=== PATIENT | male | born 1945 | race Caucasian/White ===

== ENCOUNTER 2016-09-26 12:47 | Outpatient (CLI) | payer MEDICARE, OTHER ==
[2016-09-26 13:35] LABS: Hemoglobin 17.6 g/dL (14.0-18.0); Mean Corpuscular HGB CONC 33.2 g/dL (32.0-36.0); Mean Corpuscular Hemoglobin 29.6 pg (27.0-31.0); Mean Corpuscular Volume 89.1 fl (80.0-94.0); Mean Platelet Volume 7.8 fL (7.4-10.4); Platelet Count 207 thou/uL (130-400); RBC Distribution Width 12.8 % (11.5-14.5); Red Blood Cell (RBC) Count 5.94 mill/uL (4.70-6.10); White Blood Cell (WBC) Count 7.9 thou/uL (4.8-10.8)
[2016-09-26 13:46] LABS: Hemoglobin A1c 5.5 % (4.0-6.0)
[2016-09-26 14:44] LABS: Thyroid Stimulating Hormone 2.9497 uIU/mL (0.35-4.94); Vitamin D, 25 Hydroxy 34.9 ng/mL (> 30.0)
[2016-09-26 16:54] LABS: ALT (SGPT) 34 U/L (0-55); AST (SGOT) 25 U/L (5-34); Albumin 4.3 g/dL (3.4-4.8); Alkaline Phosphatase 89 U/L (40-150); Anion Gap 17 mmol/L (10-20); BUN (Urea Nitrogen) 38 mg/dL (8.4-25.7); Bilirubin, Total 0.5 mg/dL (0.2-1.2); Calc. Creatinine Clearance 0 mL/min (70-130); Calcium 10.1 mg/dL (7.8-10.44); Carbon Dioxide 26 mmol/L (23-31); Chloride 100 mmol/L (98-107); Estimated GFR-MDRD 49; Globulin 2.5 g/dL (2.4-3.5); Glucose 98 mg/dL (80-115); Protein, Total 6.8 g/dL (5.8-8.1); Sodium 139 mmol/L (136-145)
== END 2016-09-26 12:48 | disposition home or self-care (01) ==
LOC: MADLAB 12:47
PROVIDERS: ATTEND Internal Medicine Geriatric Medicine
DX: I48.91 Unspecified atrial fibrillation (principal); K21.9 Gastro-esophageal reflux disease without esophagitis; E11.9 Type 2 diabetes mellitus without complications; N52.9 Male erectile dysfunction, unspecified; I10 Essential (primary) hypertension; G47.00 Insomnia, unspecified
CPT/HCPCS: 36415; 80053; 82306; 83036; 84443; 85027

== ENCOUNTER 2016-12-20 10:25 | Outpatient (CLI) | payer MEDICARE ==
[2016-12-20 10:45] LABS: #Basophils 0.1 thou/uL (0.0-0.2); #Eosinphils 0.3 thou/uL (0.0-0.7); #Lymphocytes 1.8 thou/uL (1.20-3.40); #Monocytes 0.7 thou/uL (0.11-0.59); #Neutrophils 2.3 thou/uL (1.40-6.50); %Basophils 2.2 % (0.0-1.0); %Eosinophils 6.4 % (0.0-10.0); %Lymphocytes 35.1 % (21.0-51.0); %Monocytes 12.6 % (0.0-10.0); %Neutrophils 43.6 % (42.0-75.0); Hemoglobin 12.4 g/dL (14.0-18.0); Mean Corpuscular HGB CONC 33.2 g/dL (32.0-36.0); Mean Corpuscular Hemoglobin 29.8 pg (27.0-31.0); Mean Corpuscular Volume 89.7 fl (80.0-94.0); Platelet Count 213 thou/uL (130-400); RBC Distribution Width 12.5 % (11.5-14.5); Red Blood Cell (RBC) Count 4.15 mill/uL (4.70-6.10); White Blood Cell (WBC) Count 5.2 thou/uL (4.8-10.8)
[2016-12-20 10:55] LABS: Hemoglobin A1c 5.1 % (4.0-6.0)
[2016-12-20 11:00] LABS: ALT (SGPT) 24 U/L (0-55); AST (SGOT) 23 U/L (5-34); Albumin 4.1 g/dL (3.4-4.8); Alkaline Phosphatase 83 U/L (40-150); Anion Gap 14 mmol/L (10-20); BUN (Urea Nitrogen) 31 mg/dL (8.4-25.7); Bilirubin, Total 0.3 mg/dL (0.2-1.2); Calc. Creatinine Clearance 0 mL/min (70-130); Calcium 9.5 mg/dL (7.8-10.44); Carbon Dioxide 26 mmol/L (23-31); Chloride 104 mmol/L (98-107); Estimated GFR-MDRD 45; Globulin 2.3 g/dL (2.4-3.5); Glucose 121 mg/dL (80-115); Potassium 4.2 mmol/L (3.5-5.1); Protein, Total 6.4 g/dL (5.8-8.1); Sodium 140 mmol/L (136-145)
[2016-12-20 12:11] LABS: Thyroid Stimulating Hormone 3.9391 uIU/mL (0.35-4.94); Vitamin D, 25 Hydroxy 34.4 ng/mL (> 30.0)
[2016-12-20 17:03] LABS: Creatinine, Urine 32.46 mg/dL (63-166); Microalbumin Urine Less than 1.0 mg/dL (0.5-50.0); Microalbumin/Creat Ratio 30.8 mg/g (Less than 30)
== END 2016-12-20 10:26 | disposition home or self-care (01) ==
LOC: MADLAB 10:25
PROVIDERS: ATTEND Internal Medicine Geriatric Medicine
DX: E11.9 Type 2 diabetes mellitus without complications (principal); K21.9 Gastro-esophageal reflux disease without esophagitis; G47.00 Insomnia, unspecified; I10 Essential (primary) hypertension; N52.9 Male erectile dysfunction, unspecified; I48.91 Unspecified atrial fibrillation
CPT/HCPCS: 36415; 80053; 82043; 82306; 83036; 84443; 85025

== ENCOUNTER 2017-04-02 10:58 | Outpatient (CLI) | payer MEDICARE ==
[2017-04-02 12:16] LABS: ALT (SGPT) 29 U/L (8-55); AST (SGOT) 24 U/L (5-34); Albumin 4.1 g/dL (3.4-4.8); Alkaline Phosphatase 86 U/L (40-150); Anion Gap 16 mmol/L (10-20); BUN (Urea Nitrogen) 32 mg/dL (8.4-25.7); Bilirubin, Total 0.4 mg/dL (0.2-1.2); Calc. Creatinine Clearance 0 mL/min (70-130); Calcium 9.2 mg/dL (7.8-10.44); Carbon Dioxide 27 mmol/L (23-31); Chloride 102 mmol/L (98-107); Estimated GFR-MDRD 50; Globulin 3.8 g/dL (2.4-3.5); Glucose 109 mg/dL (80-115); Potassium 4.1 mmol/L (3.5-5.1); Protein, Total 7.9 g/dL (5.8-8.1); Sodium 141 mmol/L (136-145)
[2017-04-02 13:44] LABS: #Basophils 0.1 thou/uL (0.0-0.2); #Eosinphils 0.4 thou/uL (0.0-0.7); #Lymphocytes 2.1 thou/uL (1.20-3.40); #Neutrophils 4.7 thou/uL (1.40-6.50); %Basophils 1.3 % (0.0-1.0); %Eosinophils 4.6 % (0.0-10.0); %Lymphocytes 25.3 % (21.0-51.0); %Neutrophils 56.8 % (42.0-75.0); Anisocytosis SLIGHT = 6-15 cells (100X) (0-5/hpf); Hemoglobin 12.6 g/dL (14.0-18.0); Hypochromia SLIGHT = 6-15 cells (100X) (0-5/hpf); MDiff Complete? YES; Mean Corpuscular HGB CONC 30.4 g/dL (32.0-36.0); Mean Corpuscular Hemoglobin 23.2 pg (27.0-31.0); Mean Corpuscular Volume 76.3 fl (80.0-94.0); Mean Platelet Volume 7.5 fL (7.4-10.4); Microcytosis SLIGHT = 6-15 cells (100X) (0-5/hpf); PLT Morphology Comment Appears Adequate; Platelet Count 211 thou/uL (130-400); RBC Distribution Width 16.5 % (11.5-14.5); Red Blood Cell (RBC) Count 5.41 mill/uL (4.70-6.10); White Blood Cell (WBC) Count 8.2 thou/uL (4.8-10.8)
== END 2017-04-02 10:59 | disposition home or self-care (01) ==
LOC: MADLAB 10:58
DX: R10.30 Lower abdominal pain, unspecified (principal); R71.8 Other abnormality of red blood cells; E11.9 Type 2 diabetes mellitus without complications; I10 Essential (primary) hypertension
CPT/HCPCS: 36415; 80053; 83516; 84443; 85025; 87338

== ENCOUNTER 2017-05-01 22:17 | Emergency (ER) | payer MEDICARE ==
--- NOTE | 2017-05-01 23:17 | RAD ---
TWO VIEW CHEST 04/29/17 COMPARISON: 12/06/14 INDICATION: Short of breath. FINDINGS: There is no consolidation, effusion, or discrete pneumothorax. The cardiac silhouette is stable. IMPRESSION: Stable chest without evidence of focal consolidation. POS: [facility]
[2017-05-01 23:22] LABS: #Basophils 0.1 thou/uL (0.0-0.2); #Eosinphils 0.4 thou/uL (0.0-0.7); #Monocytes 1.1 thou/uL (0.11-0.59); #Neutrophils 6.4 thou/uL (1.40-6.50); %Basophils 0.9 % (0.0-1.0); %Eosinophils 4.2 % (0.0-10.0); %Lymphocytes 19.9 % (21.0-51.0); %Monocytes 11.3 % (0.0-10.0); %Neutrophils 63.7 % (42.0-75.0); Hemoglobin 11.3 g/dL (14.0-18.0); MDiff Complete? YES; Mean Corpuscular HGB CONC 31.3 g/dL (32.0-36.0); Mean Corpuscular Volume 76.8 fl (80.0-94.0); Mean Platelet Volume 7.4 fL (7.4-10.4); Microcytosis SLIGHT = 6-15 cells (100X) (0-5/hpf); Platelet Count 221 thou/uL (130-400); Polychromasia SLIGHT = 2-3 cells (100X) (0-2/hpf); RBC Distribution Width 17.5 % (11.5-14.5); White Blood Cell (WBC) Count 10.1 thou/uL (4.8-10.8)
[2017-05-01 23:27] LABS: ALT (SGPT) 33 U/L (8-55); AST (SGOT) 27 U/L (5-34); Albumin 3.8 g/dL (3.4-4.8); Alkaline Phosphatase 73 U/L (40-150); Anion Gap 16 mmol/L (10-20); BUN (Urea Nitrogen) 46 mg/dL (8.4-25.7); Bilirubin, Total 0.3 mg/dL (0.2-1.2); Calc. Creatinine Clearance 0 mL/min (70-130); Calcium 8.8 mg/dL (7.8-10.44); Carbon Dioxide 26 mmol/L (23-31); Chloride 100 mmol/L (98-107); Estimated GFR-MDRD 36; Globulin 2.7 g/dL (2.4-3.5); Glucose 82 mg/dL (80-115); Potassium 4.4 mmol/L (3.5-5.1); Protein, Total 6.5 g/dL (5.8-8.1); Sodium 138 mmol/L (136-145)
[2017-05-01 23:28] LABS: Digoxin 0.26 ng/mL (0.8-2.0)
[2017-05-01] MEDS ORDERED: Furosemide 20 MG/2 ML VIAL ONE (23:30)
[2017-05-01 23:33] LABS: CKMB 4.1 ng/mL (0-6.6); Troponin I 0.019 ng/mL (< 0.028)
== END 2017-05-02 00:13 | disposition home or self-care (01) ==
LOC: MADERS 22:17
DX: D50.9 Iron deficiency anemia, unspecified (principal); I11.0 Hypertensive heart disease with heart failure; I50.9 Heart failure, unspecified; N28.9 Disorder of kidney and ureter, unspecified; I48.91 Unspecified atrial fibrillation; E11.9 Type 2 diabetes mellitus without complications; Z79.899 Other long term (current) drug therapy; Z79.4 Long term (current) use of insulin
CPT/HCPCS: 71020; 80053; 80162; 82553; 83880; 84484; 85025; 85379; 93005; 96374; J1940

== ENCOUNTER 2018-01-06 10:02 | Outpatient (CLI) | payer MEDICARE ==
--- NOTE | 2018-01-06 11:41 | ULT ---
RENAL ULTRASOUND: Comparison: None. History: Calculus of the kidney. Dull ache for a few weeks on the right side. Technique: Multiplanar grayscale and color doppler images were obtained in a renal ultrasound. FINDINGS: The kidneys are normal in echogenicity without hydronephrosis or shadowing calculi and measure 7.9 an d 10.3 cm in length on the right and left, respectively. Limited visualization of the urinary bladder is unremarkable. IMPRESSION: Unremarkable renal ultrasound. POS: [facility]
== END 2018-01-06 10:03 | disposition home or self-care (01) ==
LOC: MADULT 10:02
PROVIDERS: ATTEND Internal Medicine Geriatric Medicine
DX: N20.0 Calculus of kidney (principal)
CPT/HCPCS: 76770

== ENCOUNTER 2018-01-15 10:30 | Outpatient (CLI) | payer MEDICARE ==
[~2018-01-15 10:30] MED LIST: Iopamidol 370 76% 100 ML VIAL ONE
--- NOTE | 2018-01-15 12:18 | CT ---
CT ABDOMEN AND PELVIS WITH IV AND ORAL CONTRAST: HISTORY: Weight gain. Abdominal pain. COMPARISON: 01/19/2016 FINDINGS: Calcified granulomata within the solid organs are consistent with healed granulomatous disease. A ti ny, nonspecific, subpleural nodule at the right anterior lung base is stable. The liver, spleen, kid neys, adrenal glands, and pancreas otherwise have a normal CT appearance. There is calcification in the arterial structures. No evidence of bowel obstruction. The urinary bladder is decompressed. Sc attered diverticula arise from the colon without adjacent inflammation. IMPRESSION: 1. Atherosclerosis. Incidental type findings are stable. 2. No significant abnormalities are demonstrated. POS: [facility]
== END 2018-01-15 10:31 | disposition home or self-care (01) ==
LOC: MADCT 10:30
PROVIDERS: ATTEND Internal Medicine Gastroenterology
DX: R63.5 Abnormal weight gain (principal); I70.90 Unspecified atherosclerosis
CPT/HCPCS: 36415; 74177; 82565

== ENCOUNTER 2018-03-31 11:23 | Emergency (ER) | payer MEDICARE ==
[2018-03-31] MEDS ORDERED: HYDROcodone/Acetaminophen 10/325 mg Tablet ONE (12:07)
[2018-03-31 12:09] LABS: #Basophils 0.1 thou/uL (0.0-0.2); #Eosinphils 0.3 thou/uL (0.0-0.7); #Lymphocytes 1.7 thou/uL (1.20-3.40); #Monocytes 0.7 thou/uL (0.11-0.59); #Neutrophils 3.1 thou/uL (1.40-6.50); %Basophils 2.4 % (0.0-1.0); %Eosinophils 4.7 % (0.0-10.0); %Lymphocytes 29.2 % (21.0-51.0); %Neutrophils 51.8 % (42.0-75.0); Mean Corpuscular HGB CONC 32.6 g/dL (32.0-36.0); Mean Corpuscular Hemoglobin 27.5 pg (27.0-31.0); Mean Corpuscular Volume 84.4 fL (78.0-98.0); Mean Platelet Volume 6.4 fL (7.4-10.4); Platelet Count 173 thou/uL (130-400); RBC Distribution Width 12.1 % (11.5-14.5); Red Blood Cell (RBC) Count 5.45 mill/uL (4.70-6.10)
[2018-03-31 12:19] LABS: Anion Gap 18 mmol/L (10-20); BUN (Urea Nitrogen) 42 mg/dL (8.4-25.7); Calc. Creatinine Clearance 0 mL/min (70-130); Calcium 9.2 mg/dL (7.8-10.44); Carbon Dioxide 23 mmol/L (23-31); Chloride 102 mmol/L (98-107); Estimated GFR-MDRD 34; Glucose 136 mg/dL (80-115); Potassium 5.1 mmol/L (3.5-5.1); Sodium 138 mmol/L (136-145)
[2018-03-31] MEDS ORDERED: methylPREDNISolone Sod Succ/PF 125 MG/2 ML VIAL ONE (12:21)
--- NOTE | 2018-03-31 13:13 | CT ---
CT LUMBAR SPINE NONCONTRAST: HISTORY: Low back pain. Burning. FINDINGS: Images, including the abdomen, show calcified granulomata, consistent with healed granulomatous disea se. There is calcification throughout the arterial structures. Vertebral body heights are maintained. There is disk space narrowing and gas disk phenomenon at each level. Schmorl's nodes through the endplates throughout the lumbar spine. Discogenic endplate joyner ges are most pronounced at the L1-L2 and L2-L3 levels. There are posterior disk bulge and circumferential degenerative changes throughout the lumbar spine. Central canal stenosis is most severe at the L2-L3 level. Foraminal stenoses are most severe on the right at the lumbosacral junction and on the left at the L2-L3 and L5-S1 levels. IMPRESSION: 1. Degenerative changes throughout the lumbar spine, including severe central canal and foraminal st enoses. 2. No evidence of acute osseous abnormality. 3. Atherosclerosis. POS: [facility]
== END 2018-03-31 12:37 | disposition home or self-care (01) ==
LOC: MADERS 11:23
DX: E11.42 Type 2 diabetes mellitus with diabetic polyneuropathy (principal); M54.5 Low back pain; I48.91 Unspecified atrial fibrillation; I11.0 Hypertensive heart disease with heart failure; I50.9 Heart failure, unspecified; Z79.899 Other long term (current) drug therapy; Z79.4 Long term (current) use of insulin
CPT/HCPCS: 72131; 80048; 85025; 96374; J2930

== ENCOUNTER 2018-07-04 11:17 | Outpatient (CLI) | payer MEDICARE ==
[2018-07-06 17:55] LABS: Hemoglobin 11.8 g/dL (14.0-18.0); Mean Corpuscular Hemoglobin 23.8 pg (27.0-31.0); Mean Corpuscular Volume 77.8 fL (78.0-98.0); Red Blood Cell (RBC) Count 4.95 mill/uL (4.70-6.10); White Blood Cell (WBC) Count 5.9 thou/uL (4.8-10.8)
[2018-07-06 17:56] LABS: #Basophils 0.1 thou/uL (0.0-0.2); #Eosinphils 0.4 thou/uL (0.0-0.7); #Lymphocytes 1.6 thou/uL (1.20-3.40); #Monocytes 0.6 thou/uL (0.11-0.59); #Neutrophils 3.2 thou/uL (1.40-6.50); %Basophils 1.7 % (0.0-1.0); %Eosinophils 6.3 % (0.0-10.0); %Lymphocytes 26.7 % (21.0-51.0); %Monocytes 10.8 % (0.0-10.0); %Neutrophils 54.5 % (42.0-75.0); Manual Diff?? NO; Mean Corpuscular HGB CONC 30.6 g/dL (32.0-36.0); Mean Platelet Volume 7.4 fL (7.4-10.4); Platelet Count 212 thou/uL (130-400); RBC Distribution Width 14.1 % (11.5-14.5)
[2018-07-06 17:58] LABS: Anion Gap 13 mmol/L (10-20); BUN (Urea Nitrogen) 44 mg/dL (8.4-25.7); Calc. Creatinine Clearance 0 mL/min (70-130); Carbon Dioxide 27 mmol/L (23-31); Chloride 104 mmol/L (98-107); Estimated GFR-MDRD 38; Glucose 169 mg/dL (80-115); Potassium 4.2 mmol/L (3.5-5.1); Sodium 140 mmol/L (136-145)
[2018-07-06 17:59] LABS: ALT (SGPT) 28 U/L (8-55); AST (SGOT) 23 U/L (5-34); Albumin 4.3 g/dL (3.4-4.8); Alkaline Phosphatase 121 U/L (40-150); Bilirubin, Total 0.4 mg/dL (0.2-1.2); Calcium 9.3 mg/dL (7.8-10.44); Cardiac Risk 5.2 (Less than 4.5); Cholesterol 182 mg/dL (< 200 Desired); Globulin 2.5 g/dL (2.4-3.5); HDL Cholesterol 35 mg/dL (>60 Neg Risk); LDL Cholesterol, Calculated 98 mg/dL; Protein, Total 6.8 g/dL (5.8-8.1); Triglycerides 243 mg/dL (Less than 150)
[2018-07-06 18:28] LABS: Hemoglobin A1c 6.8 % (4.0-6.0)
== END 2018-07-04 11:18 | disposition home or self-care (01) ==
LOC: MADLAB 11:17
DX: E11.9 Type 2 diabetes mellitus without complications (principal); E78.5 Hyperlipidemia, unspecified; I10 Essential (primary) hypertension
CPT/HCPCS: 36415; 80053; 80061; 83036; 85025

== ENCOUNTER 2018-10-17 21:02 | Observation (INO) | payer MEDICARE ==
[~2018-10-17 21:02] MED LIST changes: -Iopamidol 370 76% 100 ML VIAL ONE; +Sodium Chloride 0.9% 1,000 ML BAG ONE
[2018-10-17] MEDS ORDERED: Morphine 10 MG/ML VIAL ONE (21:47)
[2018-10-17 22:02] LABS: #Basophils 0.1 thou/uL (0.0-0.2); #Eosinphils 0.6 thou/uL (0.0-0.7); #Lymphocytes 2.1 thou/uL (1.20-3.40); #Neutrophils 3.6 thou/uL (1.40-6.50); %Basophils 1.5 % (0.0-1.0); %Eosinophils 8.2 % (0.0-10.0); %Lymphocytes 27.8 % (21.0-51.0); %Monocytes 13.7 % (0.0-10.0); %Neutrophils 48.8 % (42.0-75.0); Hemoglobin 12.4 g/dL (14.0-18.0); Mean Corpuscular Hemoglobin 23.7 pg (27.0-31.0); Mean Corpuscular Volume 78.8 fL (78.0-98.0); Mean Platelet Volume 7.7 fL (7.4-10.4); Platelet Count 230 thou/uL (130-400); Red Blood Cell (RBC) Count 5.22 mill/uL (4.70-6.10); White Blood Cell (WBC) Count 7.4 thou/uL (4.8-10.8)
[2018-10-17 22:11] LABS: Microcytosis SLIGHT = 6-15 cells (100X) (0-5/hpf); Poikilocytosis SLIGHT = 6-15 cells (100X) (0-5/hpf)
[2018-10-17 22:12] LABS: Platelet Morphology Comment Appears Adequate
--- NOTE | 2018-10-17 22:12 | RAD ---
CHEST ONE VIEW: 10/17/18 HISTORY: Chest pain. COMPARISON: 08/06/17. FINDINGS: The cardiac silhouette is magnified by projection. Pulmonary vasculature is slightly engorged. Medias tinum is midline. No lobar consolidation or evidence of pneumothorax. IMPRESSION: Borderline pulmonary vascular congestion. POS: [facility]
[2018-10-17 22:17] LABS: ALT (SGPT) 24 U/L (8-55); AST (SGOT) 20 U/L (5-34); Albumin 4.2 g/dL (3.4-4.8); Alkaline Phosphatase 110 U/L (40-150); Anion Gap 18 mmol/L (10-20); BUN (Urea Nitrogen) 74 mg/dL (8.4-25.7); Bilirubin, Total 0.5 mg/dL (0.2-1.2); Calc. Creatinine Clearance 0 mL/min (70-130); Calcium 9.5 mg/dL (7.8-10.44); Carbon Dioxide 26 mmol/L (23-31); Chloride 100 mmol/L (98-107); Estimated GFR-MDRD 28; Globulin 2.4 g/dL (2.4-3.5); Glucose 150 mg/dL (83-110); Lipase 25 U/L (8-78); Potassium 5.7 mmol/L (3.5-5.1); Protein, Total 6.6 g/dL (5.8-8.1); Sodium 138 mmol/L (136-145)
[2018-10-17 22:26] LABS: Bilirubin Negative (Negative); Blood, Urine Negative (Negative); Clarity Clear (Clear); Glucose, Urine (Dipstick) Negative (Negative); Leukocyte Negative (Negative); Nitrite Negative (Negative); Protein, Urine (Dipstick) Negative (Neg-Trace); Urobilinogen 0.2 mg/dL (0.2-1.0)
--- NOTE | 2018-10-17 22:38 | CT ---
CT ABDOMEN AND PELVIS NONCONTRAST: 10/17/18 HISTORY: Flank pain. COMPARISON: 01/15/18. FINDINGS: Each renal collecting system, ureter, and urinary bladder are decompressed without stone apparent. Lack of contrast limits evaluation for other abnormalities. Tiny subpleural nodule at the right anter ior lung base is unchanged. There is prominent calcification throughout the arterial structures. Dive rticula arise from the colon without adjacent inflammation. Prominent degenerative changes of the lum bar spine. IMPRESSION: No CT evidence of urinary tract obstruction or calcification. Atherosclerosis. Chronic type findings are stable. POS: [facility]
[2018-10-17] MEDS ORDERED: Insulin Regular 300 UNITS/3 ML VIAL ONE (23:04)
[2018-10-17] MEDS ORDERED: Dextrose 50% Abboject 50 ML SYRINGE ONE (23:04)
[2018-10-17] MEDS ORDERED: Albuterol Sulfate 2.5 mg/3 ml Neb ONE (23:04)
[2018-10-18 00:59] VITALS: BMI 32.2
[2018-10-18] MEDS ORDERED: Dextrose 5% in Water 1,000 ML IV PRN (01:39)
[2018-10-18] MEDS ORDERED: Dextrose 50% Abboject 50 ML SYRINGE IVP PRN (01:39)
[2018-10-18] MEDS ORDERED: Zolpidem Tartrate 5 MG TAB PO PRN (01:40)
[2018-10-18] MEDS ORDERED: DICLOFENAC 1% TOP PRN (01:42)
[2018-10-18] MEDS ORDERED: Ondansetron PF 4 MG/2 ML Vial IVP PRN (01:44)
[2018-10-18] MEDS: Sodium Chloride 0.9% 1,000 ML IV SCH (02:48)
[2018-10-18] MEDS: HYDROcodone/Acetaminophen 10/325 mg Tablet PO PRN (03:47)
[2018-10-18] MEDS: Furosemide 80 MG TAB PO SCH (06:03)
[2018-10-18] MEDS: Nebivolol HCl 5 MG TAB PO SCH (08:29)
[2018-10-18] MEDS: Digoxin 0.125 MG TAB PO SCH (08:29)
[2018-10-18] MEDS: Gabapentin 100 MG CAP PO SCH (08:29)
[2018-10-18] MEDS: HumaLOG 300 UNITS/3 ML VIAL SC PRN (08:30)
[2018-10-18 09:11] VITALS: BP 140/75; TEMP 97.3
[2018-10-18 11:13] LABS: Hemoglobin 13.2 g/dL (14.0-18.0); Mean Corpuscular HGB CONC 30.4 g/dL (32.0-36.0); Mean Corpuscular Volume 79.2 fL (78.0-98.0); Mean Platelet Volume 7.1 fL (7.4-10.4); Platelet Count 260 thou/uL (130-400); RBC Distribution Width 15.9 % (11.5-14.5); White Blood Cell (WBC) Count 8.4 thou/uL (4.8-10.8)
[2018-10-18 11:40] LABS: #Basophils 0.2 thou/uL (0.0-0.2); #Eosinphils 0.5 thou/uL (0.0-0.7); #Lymphocytes 1.8 thou/uL (1.20-3.40); %Basophils 2.6 % (0.0-1.0); %Eosinophils 5.4 % (0.0-10.0); %Lymphocytes 21.3 % (21.0-51.0); %Monocytes 11.5 % (0.0-10.0); %Neutrophils 59.2 % (42.0-75.0); MDiff Complete? YES; Microcytosis SLIGHT = 6-15 cells (100X) (0-5/hpf); Platelet Morphology Comment Appears Adequate; Polychromasia SLIGHT = 2-3 cells (100X) (0-2/hpf); RBC Morphology 0
[2018-10-18 12:00] LABS: Anion Gap 19 mmol/L (10-20); BUN (Urea Nitrogen) 69 mg/dL (8.4-25.7); Calc. Creatinine Clearance 53 mL/min (70-130); Calcium 9.3 mg/dL (7.8-10.44); Carbon Dioxide 21 mmol/L (23-31); Chloride 101 mmol/L (98-107); Estimated GFR-MDRD 38; Glucose 187 mg/dL (83-110); Potassium 4.6 mmol/L (3.5-5.1); Sodium 136 mmol/L (136-145)
--- NOTE | 2018-10-18 15:16 | SS ---
DATE OF ADMISSION: 10/17/2018 DATE OF DISCHARGE: 10/18/2018 SHORT-STAY/OBSERVATION STAY: REASON FOR ADMISSION: Acute hyperkalemia with acute on chronic renal insufficiency. ADMITTING DIAGNOSES: 1. Acute hyperkalemia secondary to erroneous intake of potassium supplement. 2. Acute on chronic renal failure, improved. 3. Congestive heart failure, compensated. 4. Chronic atrial fibrillation, rate controlled. 5. Hypertension, stable. 6. Long-term use of anticoagulant (Pradaxa). 7. Diabetes type 2, insulin requiring. 8. Chronic insomnia. 9. Neuropathic pain. HISTORY OF PRESENT ILLNESS AND HOSPITAL COURSE: Mr. Weathers is a 73-year-old male with significant history of chronic atrial fibrillation; CHF; hypertension; diabetes type 2, insulin requiring; neuropathic pain; chronic insomnia; and chronic arthritic pain. The patient presented to [facility] on the night of 10/17/2018 secondary to evaluation of abdominal pain. Pain is generalized, dull in nature, and mild in severity. No other associated signs and symptoms reported. Denies nausea, vomiting, diarrhea, or rectal bleeding. On further examination in the ER, the patient was noted to have hyperkalemia at 5.7 with creatinine of 2.32. The patient admits that he has been taking Lasix in a while secondary to congestive heart failure. He admits that when he feels kind of short of breath, he increases his Lasix to twice a day and thus increases his potassium supplement with it. He normally takes KCl 20 mEq with one dose of Lasix 80 mg p.o. The patient admits that this time he has been taking at least three to four potassium supplements as he is afraid that he might be losing a lot of potassium since he has been getting more diuretics. Further exam showed borderline pulmonary vascular congestion by chest x-ray, unremarkable abdominal/ pelvic CT except for atherosclerosis and chronic type findings of tiny subdural nodule at the right anterior lung base, which was unchanged and stable in appearance, and prominent degenerative changes of the lumbar spine. The patient received morphine at the ER that relieved his abdominal pain. No recurrence of abdominal pain overnight. He was also treated with IV fluids over night with caution. His potassium supplement was withheld. The patient received a total of 1 unit of NS in the floor overnight. Repeat labs this morning prior to discharge showed sodium 136, potassium 4.6, BUN 69, creatinine 1.78, glucose of 187, and calcium 9.3. Other labs include troponin 0.12, BNP of 135.1, lipase 25, albumin 4.2, liver function tests within normal limits. Negative urinalysis. WBC 7.4 to 8.4, hemoglobin 12.4 to 13.2, hematocrit 41.2 and 43.5, and platelets 230 to 260. When evaluated this morning, the patient reports that he is feeling a whole lot better after IVF was received.Patient was very adamant to go home. His baseline chemistry on prior visit has a creatinine of 1.7, thus he was told that he is at his baseline at this point. He was highly recommended not to change his KCl supplement except for what is needed or prescribed. He can resume his potassium supplement 20 mEq b.i.d. with Lasix 80 mg p.o. b.i.d. as per home medication dose. He is also recommended to follow up in a week's time with his PCP. The patient voiced understanding and he will arrange his appointment. He is recommended to have repeat electrolytes and kidney function test prior to outpatient followup. He will discuss this further with his PCP. PAST MEDICAL AND SURGICAL HISTORY: Includes cardiac history, congestive heart failure, arrhythmia, atrial fibrillation, status post stent placement; history of diabetes type 2, insulin requiring; history of diverticulitis on 03/31/2018; status post appendectomy; tonsillectomy; stent placement x2; lower leg fractures on 03/31/2018. SOCIAL HISTORY: The patient is . Denies alcohol use or drug use. No smoking history. He was a former drug user, but not any longer except for his current pain medications. OTHER LABS/TEST: EKG; atrial fibrillation, 58 beats per minute, normal axis and intervals, normal EKG. PHYSICAL EXAMINATION: VITAL SIGNS: Blood pressure 140/75, temperature 97.3, pulse 85, respiration 20 , and O2 saturations 99%. Weight 218 pounds and 5 ounces. Height 5 feet and 10 inches. GENERAL: The patient is awake, alert, and oriented x3. Not in distress. Ambulatory without use of assistive device. HEENT: Normocephalic and atraumatic. PERRL. Intact EOM. Anicteric sclerae. Tongue in midline. No tremors. Oral mucosa is moist. NECK: Supple. No LAD. No thyromegaly. Flat JVD. CHEST: Normal excursion. Clear to auscultation bilaterally. CARDIAC: Rate controlled. Normal S1 and S2. ABDOMEN: Obese, soft. Normoactive bowel sounds. Nondistended, nontender. Negative CVA tenderness bilaterally. EXTREMITIES: No edema. No cyanosis. PSYCH: Appears calm with appropriate demeanor and affect. Cooperative. CODE STATUS: The patient is full code. Job ID: [id number] [facility]
== END 2018-10-18 12:36 | disposition home or self-care (01) ==
LOC: MADERS 21:02 → MADMS 23:56
PROVIDERS: ADMIT Family Medicine; ATTEND Family Medicine
DX: E87.5 Hyperkalemia (principal); I13.0 Hypertensive heart and chronic kidney disease with heart failure and stage 1 through stage 4 chronic kidney disease, or unspecified chronic kidney disease; E11.22 Type 2 diabetes mellitus with diabetic chronic kidney disease; N18.9 Chronic kidney disease, unspecified; I50.9 Heart failure, unspecified; N17.9 Acute kidney failure, unspecified; I48.2 Chronic atrial fibrillation; G47.00 Insomnia, unspecified; E11.40 Type 2 diabetes mellitus with diabetic neuropathy, unspecified; Z95.5 Presence of coronary angioplasty implant and graft; Z90.49 Acquired absence of other specified parts of digestive tract; Z90.89 Acquired absence of other organs; Z79.01 Long term (current) use of anticoagulants; Z79.4 Long term (current) use of insulin; Z79.899 Other long term (current) drug therapy; Z98.890 Other specified postprocedural states
CPT/HCPCS: 36416; 71045; 74176; 80048; 80053; 81003; 83605; 83690; 83880; 84484; 85025; 93005; 96361; 96372; 96374; 96375; G0378; J1815; J2270; J7050; J7611

== ENCOUNTER 2019-03-30 15:13 | Emergency (ER) | payer MEDICARE ==
[~2019-03-30 15:13] MED LIST changes: +Iopamidol 370 76% 100 ML VIAL ONE; -Sodium Chloride 0.9% 1,000 ML BAG ONE; +Sodium Chloride 0.9% 100 ML BAG ONE
[2019-03-30 16:01] LABS: #Basophils 0.2 thou/uL (0.0-0.2); #Eosinphils 0.2 thou/uL (0.0-0.7); #Lymphocytes 1.7 thou/uL (1.20-3.40); #Neutrophils 5.1 thou/uL (1.40-6.50); %Basophils 1.9 % (0.0-1.0); %Eosinophils 2.3 % (0.0-10.0); %Lymphocytes 20.8 % (21.0-51.0); Mean Corpuscular HGB CONC 31.4 g/dL (32.0-36.0); Mean Corpuscular Hemoglobin 25.8 pg (27.0-31.0); Platelet Count 192 thou/uL (130-400); RBC Distribution Width 14.5 % (11.5-14.5); Red Blood Cell (RBC) Count 6.21 mill/uL (4.70-6.10)
[2019-03-30 16:10] LABS: INR-International Normal Ratio 1.2; Prothrombin Time 15.6 SEC (12.0-14.7)
[2019-03-30 16:22] LABS: ALT (SGPT) 31 U/L (8-55); AST (SGOT) 25 U/L (5-34); Albumin 4.6 g/dL (3.4-4.8); Alkaline Phosphatase 99 U/L (40-150); Anion Gap 19 mmol/L (10-20); BUN (Urea Nitrogen) 41 mg/dL (8.4-25.7); Bilirubin, Total 0.3 mg/dL (0.2-1.2); Calc. Creatinine Clearance 0 mL/min (70-130); Calcium 9.8 mg/dL (7.8-10.44); Carbon Dioxide 24 mmol/L (23-31); Chloride 100 mmol/L (98-107); Estimated GFR-MDRD 45; Globulin 2.9 g/dL (2.4-3.5); Glucose 86 mg/dL (83-110); Potassium 3.6 mmol/L (3.5-5.1); Protein, Total 7.5 g/dL (5.8-8.1); Sodium 139 mmol/L (136-145)
--- NOTE | 2019-03-30 16:38 | RAD ---
SINGLE VIEW OF THE CHEST: Comparison: 03-19-19 History: Dyspnea. FINDINGS: Single view of the chest shows cardiomediastinal silhouette which is upper limits of normal in size. There is no evidence of consolidation, mass, or pleural effusions. Degenerative changes are seen in t he spine. The patient has a left shoulder prosthesis. IMPRESSION: No evidence of acute cardiopulmonary disease. POS: [facility]
--- NOTE | 2019-03-30 19:59 | CT ---
CT PULMONARY ANGIOGRAM WITH IV CONTRAST AND 3D POST PROCESSING: HISTORY: Dyspnea. FINDINGS: There is good contrast opacification of the pulmonary arterial vasculature, without filling defects t o suggest pulmonary embolism. The thoracic aorta is well opacified without aneurysm or dissection. An aberrant right subclavian artery is present. No pleural or pericardial effusions are seen. No pn eumothoraces, focal areas of consolidation, or lung masses are identified. There are degenerative ch anges in the spine. A small hiatal hernia is present. There are calcified granulomas in the spleen. A left humeral head prosthesis is present. There is bilateral gynecomastia. IMPRESSION: No CT evidence of pulmonary embolism. POS: [facility]
== END 2019-03-30 19:35 | disposition home or self-care (01) ==
LOC: MADERS 15:13
DX: E11.65 Type 2 diabetes mellitus with hyperglycemia (principal); I10 Essential (primary) hypertension; N19 Unspecified kidney failure; I48.91 Unspecified atrial fibrillation; Z79.899 Other long term (current) drug therapy; Z79.4 Long term (current) use of insulin
CPT/HCPCS: 36416; 71045; 71275; 80053; 83880; 84484; 85025; 85610; 93005; J3490; Q9967

== ENCOUNTER 2019-04-23 12:20 | Outpatient (CLI) | payer MEDICARE ==
--- NOTE | 2019-04-23 14:17 | RAD ---
LEFT KNEE 2 VIEWS: Date: 04/23/19 HISTORY: Follow-up of total knee replacement. COMPARISON: 04/07/19 study. FINDINGS: Total knee prosthesis is in good position. No signs of loosening. There does appear to be some slight suprapatellar fullness suggesting presence of some joint effusion. IMPRESSION: Total knee prosthesis in good position. Suggestion of some joint effusion. POS: [facility]
== END 2019-04-23 12:21 | disposition home or self-care (01) ==
LOC: MADRAD 12:20
PROVIDERS: ATTEND Orthopaedic Surgery
DX: Z47.1 Aftercare following joint replacement surgery (principal); Z96.653 Presence of artificial knee joint, bilateral

== ENCOUNTER 2019-06-01 23:12 | Emergency (ER) | payer MEDICARE ==
[2019-06-01] MEDS ORDERED: Metoclopramide HCl 10 MG/2 ML VIAL ONE (23:57)
[2019-06-01] MEDS ORDERED: Sodium Chloride 0.9% 500 ML ONE (23:57)
[2019-06-01] MEDS ORDERED: diphenhydrAMINE 50 MG/ML VIAL ONE (23:57)
[2019-06-02 00:20] LABS: #Basophils 0.1 thou/uL (0.0-0.2); #Eosinphils 0.1 thou/uL (0.0-0.7); #Lymphocytes 2.1 thou/uL (1.20-3.40); #Monocytes 0.8 thou/uL (0.11-0.59); #Neutrophils 4.4 thou/uL (1.40-6.50); %Basophils 1.2 % (0.0-1.0); %Eosinophils 1.2 % (0.0-10.0); %Lymphocytes 27.5 % (21.0-51.0); %Monocytes 11.3 % (0.0-10.0); %Neutrophils 58.7 % (42.0-75.0); Hemoglobin 16.2 g/dL (14.0-18.0); Mean Corpuscular HGB CONC 31.8 g/dL (32.0-36.0); Mean Corpuscular Hemoglobin 27.1 pg (27.0-31.0); Mean Corpuscular Volume 85.4 fL (78.0-98.0); Mean Platelet Volume 6.8 fL (7.4-10.4); Platelet Count 193 thou/uL (130-400); RBC Distribution Width 12.3 % (11.5-14.5); Red Blood Cell (RBC) Count 5.98 mill/uL (4.70-6.10); White Blood Cell (WBC) Count 7.4 thou/uL (4.8-10.8)
[2019-06-02 00:33] LABS: CO2 Tension (PvCO2) 40.5 mmHg (40.0-50.0)
[2019-06-02 00:34] LABS: Base Excess-Venous -0.5 mmol/L (-2.0 to 3.0); Bicarbonate (HCO3v) 24.5 mmol/L (22.0-28.0); Calcium, Ionized 1.19 mmol/L (See Comments:); Chloride 102 mmol/L (98-107); Hemoglobin - Calc 17.3 g/dL (14.0-18.0); Potassium 4.2 mmol/L (3.5-5.1); Sodium 138 mmol/L (138-145); T. Carbon Dioxide 25.7 mmol/L (22.0-28.0); vO2 Saturation-calc 96.3 % (60.0-85.0)
[2019-06-02 00:36] LABS: ALT (SGPT) 26 U/L (8-55); AST (SGOT) 21 U/L (5-34); Albumin 4.4 g/dL (3.4-4.8); Alkaline Phosphatase 117 U/L (40-150); Anion Gap 16 mmol/L (10-20); BUN (Urea Nitrogen) 24 mg/dL (8.4-25.7); Bilirubin, Total 0.5 mg/dL (0.2-1.2); Calc. Creatinine Clearance 0 mL/min (70-130); Calcium 9.7 mg/dL (7.8-10.44); Carbon Dioxide 24 mmol/L (23-31); Chloride 102 mmol/L (98-107); Estimated GFR-MDRD 61; Globulin 2.6 g/dL (2.4-3.5); Glucose 133 mg/dL (83-110); Magnesium 2.1 mg/dL (1.6-2.6); Potassium 4.2 mmol/L (3.5-5.1); Sodium 138 mmol/L (136-145)
--- NOTE | 2019-06-02 07:45 | CT ---
PRELIMINARY REPORT/[facility]/EMERGENCY AFTER HOURS PROCEDURE EXAM: CT Head Without Contrast EXAM DATE/TIME: 06/02/2019 12:15 AM CLINICAL HISTORY: 73 years old, male; Pain; Other: Headaches with pressure around lt eye TECHNIQUE: Imaging protocol: Computed tomography of the head without contrast. Radiation optimization: All CT scans at this facility use at least one of these dose optimization bladimir hniques: automated exposure control; mA and/or kV adjustment per patient size (includes targeted exam s where dose is matched to clinical indication); or iterative reconstruction. COMPARISON: No relevant prior studies available. FINDINGS: Brain: Mild generalized volume loss of the brain. 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 No brain edema. No intracranial hemorrhage. Ventricles: Normal. No ventriculomegaly. Bones/joints: Unremarkable. No acute fracture. Sinuses: Visualized sinuses are unremarkable. No fluid levels. Mastoid air cells: Visualized mastoid air cells are well aerated. Soft tissues: Unremarkable. IMPRESSION: No acute brain findings. Thank you for allowing us to participate in the care of your patient. Dictated and Authenticated by: Brando Brown MD 06/02/2019 1:14 AM Central Time ([place] & [place]) FINAL REPORT CT HEAD WITHOUT CONTRAST: FINDINGS: No acute intracranial abnormality identified. I am in agreement with the preliminary report. CODE QA POS: [facility]
== END 2019-06-02 01:26 | disposition home or self-care (01) ==
LOC: MADERS 23:12
DX: G43.909 Migraine, unspecified, not intractable, without status migrainosus (principal); E11.9 Type 2 diabetes mellitus without complications; I11.0 Hypertensive heart disease with heart failure; I50.9 Heart failure, unspecified; I49.9 Cardiac arrhythmia, unspecified; I48.91 Unspecified atrial fibrillation; Z79.899 Other long term (current) drug therapy; Z79.4 Long term (current) use of insulin
CPT/HCPCS: 70450; 82330; 82803; 83735; 96374; 96375; J1200; J2765; J7050